=== PATIENT | male | born 1995 | race African-American/Black ===

== ENCOUNTER 2024-10-16 21:28 | Emergency (ER) | payer MEDICAID ==
[~2024-10-16] VITALS: Ht 175.3 cm; Wt 76.0 kg
[2024-10-16 21:29] VITALS: TEMP 98.1
[2024-10-16 21:51] VITALS: BP 133/75; PULSE 81; RESP 15; O2SAT 100
[2024-10-16] MEDS: PB/HYOSCY/ATR/SCOP/LIDO/MAALOX 55 ML BOTTLE PO ONE (22:51)
[2024-10-16 23:21] LABS: CALCIUM, TOTAL 8.7 mg/dL (8.8-10.5); CREATININE 0.97 mg/dL (0.60-1.30); GLOMERULAR FILTR. RATE CALC > 60 mL/min (>60); GLUCOSE,RANDOM 101 mg/dL (70-110); SODIUM SERUM 142 mmol/L (136-145); UREA NITROGEN, BLOOD 6 mg/dL (7-18)
[2024-10-16 23:23] LABS: PLATELET COUNT (AUTO) 226 K/uL (150-450); RED BLOOD CELL COUNT(AUTO) 4.87 MIL/uL (4.50-5.90); RED CELL DISTRIBUTION WIDTH 13.4 % (11.5-14.5); WHITE BLOOD COUNT (AUTO) 11.5 K/uL (4.5-11.0)
[2024-10-16 23:35] LABS: ASPARTATE AMINOTRANSFERASE 20.0 U/L (15-37); TOTAL PROTEIN, SERUM 7.3 g/dL (6.4-8.2)
== END 2024-10-17 01:59 | disposition home or self-care (01) ==
LOC: EMS 21:28
DX: R10.13 Epigastric pain (principal)
CPT/HCPCS: 74018; 76705; 80048; 80076; 83690; 85025; 93005; 99285; 36415-L1; 36415-TC